=== PATIENT | male | born 1945 | race Caucasian/White ===

== ENCOUNTER 2017-10-06 15:10 | Inpatient (IN) | payer MEDICARE, OTHER ==
[~2017-10-06] VITALS: Ht 167.6 cm; Wt 69.4 kg
[2017-10-06 15:30] VITALS: BP 155/89
[2017-10-06] MEDS ORDERED: ACETAMINOPHEN 325 MG TABLET PO PRN ×2 (17:00)
[2017-10-06] MEDS ORDERED: TEMAZEPAM 15 MG CAPSULE PO PRN (17:00)
[2017-10-06] MEDS ORDERED: DOCUSATE SODIUM 283 MG/5 ML MINI-ENEMA PR PRN (17:00)
[2017-10-06] MEDS ORDERED: PNEUMOCOCCAL VACCINE POLYVALENT 0.5 ML VIAL [PPSV23] IM ONE (18:15)
[2017-10-06 19:06] LABS: APPEARANCE,URINE CLEAR (CLEAR); BILIRUBIN,URINE NEGATIVE (NEGATIVE); GLUCOSE, URINE (UA) NEGATIVE (NEGATIVE); KETONES,URINE NEGATIVE (NEGATIVE); LEUKOCYTE ESTERASE ,URINE NEGATIVE (NEGATIVE); NITRATE,URINE NEGATIVE (NEGATIVE); OCCULT BLOOD,URINE NEGATIVE (NEGATIVE); PROTEIN,URINE NEGATIVE (NEGATIVE)
[2017-10-06 19:20] LABS: BACTERIA,URINE None Seen /HPF (None Seen); RBC,URINE None Seen /HPF (0-2); WBC,URINE None Seen /HPF (0-5)
[2017-10-06 19:21] LABS: SQUAMOUS EPITHELIAL CELL,UR Rare /LPF (None Seen)
[2017-10-06] MEDS: HEPARIN SODIUM,PORCINE 5,000 UNITS/ML VIAL SQ SCH (20:32)
[2017-10-06] MEDS: ATORVASTATIN CALCIUM 40 MG TABLET PO SCH (20:32)
[2017-10-06] MEDS: SENNA 187 MG TABLET PO SCH (20:32)
[2017-10-06] MEDS: DOCUSATE SODIUM 100 MG CAPSULE PO SCH (20:32)
[2017-10-06 21:37] VITALS: BP 149/84
[2017-10-06 21:43] VITALS: BP 143/75
[2017-10-07 03:00] VITALS: BP 152/89
[2017-10-07 06:00] VITALS: BP 148/84
[2017-10-07 06:37] LABS: BASOPHILS % (AUTO) 0.8 % (0.0-2.0); EOSINOPHILS % (AUTO) 2.1 % (1.0-6.0); HEMATOCRIT 52.2 % (41-53); HEMOGLOBIN 18.3 g/dL (13.5-17.5); LYMPHOCYTES # (AUTO) 1.5 K/uL (1.0-4.8); LYMPHOCYTES % (AUTO) 17.4 % (22.0-44.0); MEAN CORPUSCULAR HEMOGLOBIN 34.7 pg (26.0-34.0); MEAN CORPUSCULAR HGB CONC 35.1 G/dL (31.0-37.0); MEAN CORPUSCULAR VOLUME 99 fL (80-100); NEUTROPHILS # (AUTO) 5.9 K/uL (1.8-7.7); NEUTROPHILS % (AUTO) 67.7 % (40.0-70.0); PLATELET COUNT (AUTO) 224 K/uL (150-450); RED BLOOD CELL COUNT(AUTO) 5.29 MIL/uL (4.50-5.90); RED CELL DISTRIBUTION WIDTH 13.6 % (11.5-14.5)
[2017-10-07 07:07] LABS: ALANINE AMINOTRANSFERASE 70 U/L (12-78); ALBUMIN 3.2 g/dL (3.4-5.0); ALKALINE PHOSPHATASE 153 U/L (46-116); ANION GAP 10 mmol/L (8-16); ASPARTATE AMINOTRANSFERASE 54 U/L (15-37); BILIRUBIN,TOTAL 1.1 mg/dL (0.1-1.0); CALCIUM, TOTAL 8.9 mg/dL (8.8-10.5); CARBON DIOXIDE 26 mmol/L (22-29); CHLORIDE 102 mmol/L (98-107); CREATININE 0.89 mg/dL (0.60-1.30); GLUCOSE,RANDOM 98 mg/dL (70-110); POTASSIUM 4.2 mmol/L (3.5-5.1); SODIUM SERUM 138 mmol/L (136-145); TOTAL PROTEIN, SERUM 7.9 g/dL (6.4-8.2); UREA NITROGEN, BLOOD 12 mg/dL (7-18)
[2017-10-07 07:08] LABS: GLOMERULAR FILTR. RATE CALC > 60 mL/min (>60)
[2017-10-07 07:27] VITALS: BP 150/88
[2017-10-07] MEDS: FOLIC ACID 1 MG TABLET PO SCH (08:20)
[2017-10-07] MEDS: THIAMINE HCL 100 MG TABLET PO SCH (08:20)
[2017-10-07] MEDS: FAMOTIDINE 20 MG TABLET PO SCH (08:20)
[2017-10-07] MEDS: ASPIRIN 81 MG CHEWABLE TABLET PO SCH (08:21)
[2017-10-07] MEDS: DOCUSATE SODIUM 100 MG CAPSULE PO SCH ×2 (08:21→21:05)
[2017-10-07] MEDS: LISINOPRIL 10 MG TABLET PO SCH (08:21)
[2017-10-07] MEDS: HEPARIN SODIUM,PORCINE 5,000 UNITS/ML VIAL SQ SCH ×2 (08:21→21:12)
[2017-10-07 12:00] VITALS: BP 140/67
[2017-10-07 16:01] VITALS: BP 140/63
[2017-10-07] MEDS: SENNA 187 MG TABLET PO SCH (21:05)
[2017-10-07] MEDS: ATORVASTATIN CALCIUM 40 MG TABLET PO SCH (21:05)
[2017-10-08 01:00] VITALS: BP 147/73
[2017-10-08 08:00] VITALS: BP 147/78
[2017-10-08] MEDS: FAMOTIDINE 20 MG TABLET PO SCH (08:48)
[2017-10-08] MEDS: HEPARIN SODIUM,PORCINE 5,000 UNITS/ML VIAL SQ SCH ×2 (08:48→21:46)
[2017-10-08] MEDS: LISINOPRIL 10 MG TABLET PO SCH (08:48)
[2017-10-08] MEDS: THIAMINE HCL 100 MG TABLET PO SCH (08:48)
[2017-10-08] MEDS: FOLIC ACID 1 MG TABLET PO SCH (08:49)
[2017-10-08] MEDS: ASPIRIN 81 MG CHEWABLE TABLET PO SCH (08:49)
[2017-10-08] MEDS: DOCUSATE SODIUM 100 MG CAPSULE PO SCH ×2 (08:49→21:45)
[2017-10-08 15:05] VITALS: BP 148/74
[2017-10-08] MEDS: ATORVASTATIN CALCIUM 40 MG TABLET PO SCH (21:46)
[2017-10-08] MEDS: SENNA 187 MG TABLET PO SCH (21:46)
[2017-10-09 04:00] VITALS: BP 145/80
[2017-10-09 08:04] VITALS: BP 160/87
[2017-10-09] MEDS: FAMOTIDINE 20 MG TABLET PO SCH (08:12)
[2017-10-09] MEDS: ASPIRIN 81 MG CHEWABLE TABLET PO SCH (08:12)
[2017-10-09] MEDS: DOCUSATE SODIUM 100 MG CAPSULE PO SCH ×2 (08:12→20:24)
[2017-10-09] MEDS: THIAMINE HCL 100 MG TABLET PO SCH (08:13)
[2017-10-09] MEDS: HEPARIN SODIUM,PORCINE 5,000 UNITS/ML VIAL SQ SCH ×2 (08:13→20:24)
[2017-10-09] MEDS: FOLIC ACID 1 MG TABLET PO SCH (08:13)
[2017-10-09] MEDS ORDERED: LISINOPRIL 10 MG TABLET PO SCH (09:00)
[2017-10-09 11:42] VITALS: BP 140/71
[2017-10-09 15:08] VITALS: BP_SYST 138; BP_SYST 155; BP_DIAS 68; BP_DIAS 69
[2017-10-09] MEDS: ATORVASTATIN CALCIUM 40 MG TABLET PO SCH (20:24)
[2017-10-09] MEDS: SENNA 187 MG TABLET PO SCH (20:24)
[2017-10-09] MEDS ORDERED: LISI-662 PO ×2 (23:21→23:26)
[2017-10-09] MEDS ORDERED: ASPI81TA39 PO (23:25)
[2017-10-09] MEDS ORDERED: ATOR40TA28 PO (23:25)
[2017-10-09] MEDS ORDERED: FAMO20 PO (23:25)
[2017-10-09] MEDS ORDERED: DSS100 PO (23:25)
[2017-10-09] MEDS ORDERED: SENN-175 PO (23:25)
[2017-10-09] MEDS ORDERED: FOLI1 PO (23:25)
[2017-10-09] MEDS ORDERED: THIA100T67 PO (23:25)
[2017-10-10 01:42] VITALS: BP 142/73
[2017-10-10 07:24] VITALS: BP 149/79
[2017-10-10] MEDS: THIAMINE HCL 100 MG TABLET PO SCH (08:01)
[2017-10-10] MEDS: HEPARIN SODIUM,PORCINE 5,000 UNITS/ML VIAL SQ SCH ×2 (08:01→20:18)
[2017-10-10] MEDS: FOLIC ACID 1 MG TABLET PO SCH (08:01)
[2017-10-10] MEDS: LISINOPRIL 20 MG TABLET PO SCH (08:01)
[2017-10-10] MEDS: FAMOTIDINE 20 MG TABLET PO SCH (08:01)
[2017-10-10] MEDS: ASPIRIN 81 MG CHEWABLE TABLET PO SCH (08:01)
[2017-10-10] MEDS: DOCUSATE SODIUM 100 MG CAPSULE PO SCH ×2 (08:01→20:18)
[2017-10-10] MEDS: NICOTINE 21 MG/24 HOUR PATCH TD SCH (13:27)
[2017-10-10 15:30] VITALS: BP 107/69
[2017-10-10] MEDS: SENNA 187 MG TABLET PO SCH (20:18)
[2017-10-10] MEDS: ATORVASTATIN CALCIUM 40 MG TABLET PO SCH (20:18)
[2017-10-10 23:40] VITALS: BP 145/70
[2017-10-11 07:16] VITALS: BP 160/83
[2017-10-11] MEDS: LISINOPRIL 20 MG TABLET PO SCH (08:00)
[2017-10-11] MEDS: FAMOTIDINE 20 MG TABLET PO SCH (08:00)
[2017-10-11] MEDS: FOLIC ACID 1 MG TABLET PO SCH (08:00)
[2017-10-11] MEDS: THIAMINE HCL 100 MG TABLET PO SCH (08:00)
[2017-10-11] MEDS: DOCUSATE SODIUM 100 MG CAPSULE PO SCH ×2 (08:00→20:38)
[2017-10-11] MEDS: ASPIRIN 81 MG CHEWABLE TABLET PO SCH (08:00)
[2017-10-11] MEDS: HYDROCHLOROTHIAZIDE 25 MG TABLET PO SCH (08:01)
[2017-10-11] MEDS: HEPARIN SODIUM,PORCINE 5,000 UNITS/ML VIAL SQ SCH ×2 (08:02→20:38)
[2017-10-11] MEDS: NICOTINE 21 MG/24 HOUR PATCH TD SCH (08:03)
[2017-10-11 09:15] VITALS: BP 139/71
[2017-10-11 15:33] VITALS: BP 140/68
[2017-10-11] MEDS: SENNA 187 MG TABLET PO SCH (20:37)
[2017-10-11] MEDS: ATORVASTATIN CALCIUM 40 MG TABLET PO SCH (20:38)
[2017-10-11 23:41] VITALS: BP 134/66
[2017-10-12 07:26] VITALS: BP 154/79
[2017-10-12] MEDS: DOCUSATE SODIUM 100 MG CAPSULE PO SCH ×2 (08:26→20:02)
[2017-10-12] MEDS: ASPIRIN 81 MG CHEWABLE TABLET PO SCH (08:26)
[2017-10-12] MEDS: LISINOPRIL 20 MG TABLET PO SCH (08:26)
[2017-10-12] MEDS: HYDROCHLOROTHIAZIDE 25 MG TABLET PO SCH (08:26)
[2017-10-12] MEDS: FAMOTIDINE 20 MG TABLET PO SCH (08:26)
[2017-10-12] MEDS: THIAMINE HCL 100 MG TABLET PO SCH (08:26)
[2017-10-12] MEDS: FOLIC ACID 1 MG TABLET PO SCH (08:26)
[2017-10-12] MEDS: HEPARIN SODIUM,PORCINE 5,000 UNITS/ML VIAL SQ SCH ×2 (08:26→20:02)
[2017-10-12] MEDS: NICOTINE 21 MG/24 HOUR PATCH TD SCH (08:28)
[2017-10-12 13:00] VITALS: BP 156/72
[2017-10-12 15:00] VITALS: BP 114/61
[2017-10-12] MEDS: ATORVASTATIN CALCIUM 40 MG TABLET PO SCH (20:02)
[2017-10-12] MEDS: SENNA 187 MG TABLET PO SCH (20:02)
[2017-10-13 00:26] VITALS: BP 148/85
[2017-10-13 07:30] VITALS: BP 128/59
[2017-10-13] MEDS: HEPARIN SODIUM,PORCINE 5,000 UNITS/ML VIAL SQ SCH ×2 (08:44→20:31)
[2017-10-13] MEDS: FAMOTIDINE 20 MG TABLET PO SCH (08:44)
[2017-10-13] MEDS: FOLIC ACID 1 MG TABLET PO SCH (08:45)
[2017-10-13] MEDS: HYDROCHLOROTHIAZIDE 25 MG TABLET PO SCH (08:45)
[2017-10-13] MEDS: DOCUSATE SODIUM 100 MG CAPSULE PO SCH ×2 (08:46→20:32)
[2017-10-13] MEDS: THIAMINE HCL 100 MG TABLET PO SCH (08:46)
[2017-10-13] MEDS: ASPIRIN 81 MG CHEWABLE TABLET PO SCH (08:46)
[2017-10-13] MEDS: LISINOPRIL 20 MG TABLET PO SCH (08:46)
[2017-10-13] MEDS: NICOTINE 21 MG/24 HOUR PATCH TD SCH (08:47)
[2017-10-13 16:01] VITALS: BP 127/76
[2017-10-13] MEDS: SENNA 187 MG TABLET PO SCH (20:31)
[2017-10-13] MEDS: ATORVASTATIN CALCIUM 40 MG TABLET PO SCH (20:31)
[2017-10-14 00:26] VITALS: BP 150/69
[2017-10-14 07:12] VITALS: BP 165/71
[2017-10-14] MEDS: HYDROCHLOROTHIAZIDE 25 MG TABLET PO SCH (08:13)
[2017-10-14] MEDS: NICOTINE 21 MG/24 HOUR PATCH TD SCH (08:13)
[2017-10-14] MEDS: HEPARIN SODIUM,PORCINE 5,000 UNITS/ML VIAL SQ SCH ×2 (08:13→21:13)
[2017-10-14] MEDS: LISINOPRIL 20 MG TABLET PO SCH (08:13)
[2017-10-14] MEDS: DOCUSATE SODIUM 100 MG CAPSULE PO SCH ×2 (08:14→21:13)
[2017-10-14] MEDS: FOLIC ACID 1 MG TABLET PO SCH (08:14)
[2017-10-14] MEDS: FAMOTIDINE 20 MG TABLET PO SCH (08:14)
[2017-10-14] MEDS: ASPIRIN 81 MG CHEWABLE TABLET PO SCH (08:15)
[2017-10-14 15:47] VITALS: BP 136/77
[2017-10-14] MEDS: SENNA 187 MG TABLET PO SCH (21:13)
[2017-10-14] MEDS: ATORVASTATIN CALCIUM 40 MG TABLET PO SCH (21:13)
[2017-10-15 02:30] VITALS: BP 152/75
[2017-10-15 07:30] VITALS: BP 141/66
[2017-10-15] MEDS: NICOTINE 21 MG/24 HOUR PATCH TD SCH (07:51)
[2017-10-15] MEDS: HEPARIN SODIUM,PORCINE 5,000 UNITS/ML VIAL SQ SCH ×2 (07:52→20:51)
[2017-10-15] MEDS: HYDROCHLOROTHIAZIDE 25 MG TABLET PO SCH (07:53)
[2017-10-15] MEDS: LISINOPRIL 20 MG TABLET PO SCH (07:53)
[2017-10-15] MEDS: FAMOTIDINE 20 MG TABLET PO SCH (07:53)
[2017-10-15] MEDS: FOLIC ACID 1 MG TABLET PO SCH (07:54)
[2017-10-15] MEDS: ASPIRIN 81 MG CHEWABLE TABLET PO SCH (07:54)
[2017-10-15] MEDS: DOCUSATE SODIUM 100 MG CAPSULE PO SCH ×2 (07:54→20:51)
[2017-10-15 15:16] VITALS: BP 147/75
[2017-10-15 20:47] VITALS: BP 128/60
[2017-10-15] MEDS: ATORVASTATIN CALCIUM 40 MG TABLET PO SCH (20:51)
[2017-10-15] MEDS: SENNA 187 MG TABLET PO SCH (20:51)
[2017-10-16 02:46] VITALS: BP 131/65
[2017-10-16 07:09] VITALS: BP 139/71
[2017-10-16] MEDS: ASPIRIN 81 MG CHEWABLE TABLET PO SCH (07:59)
[2017-10-16] MEDS: FAMOTIDINE 20 MG TABLET PO SCH (07:59)
[2017-10-16] MEDS: HYDROCHLOROTHIAZIDE 25 MG TABLET PO SCH (07:59)
[2017-10-16] MEDS: FOLIC ACID 1 MG TABLET PO SCH (07:59)
[2017-10-16] MEDS: DOCUSATE SODIUM 100 MG CAPSULE PO SCH ×2 (07:59→20:49)
[2017-10-16] MEDS: HEPARIN SODIUM,PORCINE 5,000 UNITS/ML VIAL SQ SCH ×2 (07:59→20:50)
[2017-10-16] MEDS: LISINOPRIL 20 MG TABLET PO SCH (07:59)
[2017-10-16] MEDS: NICOTINE 21 MG/24 HOUR PATCH TD SCH (08:02)
[2017-10-16 15:03] VITALS: BP 122/60
[2017-10-16] MEDS: SENNA 187 MG TABLET PO SCH (20:50)
[2017-10-16] MEDS: ATORVASTATIN CALCIUM 40 MG TABLET PO SCH (20:50)
[2017-10-17 02:06] VITALS: BP 133/66
[2017-10-17 06:44] LABS: ALANINE AMINOTRANSFERASE 82 U/L (12-78); ALBUMIN 3.1 g/dL (3.4-5.0); ALKALINE PHOSPHATASE 145 U/L (46-116); ANION GAP 8 mmol/L (8-16); ASPARTATE AMINOTRANSFERASE 39 U/L (15-37); BILIRUBIN,TOTAL 0.7 mg/dL (0.1-1.0); CALCIUM, TOTAL 8.9 mg/dL (8.8-10.5); CARBON DIOXIDE 27 mmol/L (22-29); CHLORIDE 100 mmol/L (98-107); CREATININE 1.01 mg/dL (0.60-1.30); GLUCOSE,RANDOM 108 mg/dL (70-110); POTASSIUM 4.1 mmol/L (3.5-5.1); SODIUM SERUM 135 mmol/L (136-145); TOTAL PROTEIN, SERUM 7.5 g/dL (6.4-8.2); UREA NITROGEN, BLOOD 20 mg/dL (7-18)
[2017-10-17 06:50] LABS: GLOMERULAR FILTR. RATE CALC > 60 mL/min (>60)
[2017-10-17 07:18] VITALS: BP 122/65
[2017-10-17] MEDS: NICOTINE 21 MG/24 HOUR PATCH TD SCH (09:03)
[2017-10-17] MEDS: FOLIC ACID 1 MG TABLET PO SCH (09:03)
[2017-10-17] MEDS: LISINOPRIL 20 MG TABLET PO SCH (09:03)
[2017-10-17] MEDS: DOCUSATE SODIUM 100 MG CAPSULE PO SCH ×2 (09:03→20:59)
[2017-10-17] MEDS: HEPARIN SODIUM,PORCINE 5,000 UNITS/ML VIAL SQ SCH ×2 (09:03→20:59)
[2017-10-17] MEDS: FAMOTIDINE 20 MG TABLET PO SCH (09:04)
[2017-10-17] MEDS: HYDROCHLOROTHIAZIDE 25 MG TABLET PO SCH (09:04)
[2017-10-17] MEDS: ASPIRIN 81 MG CHEWABLE TABLET PO SCH (09:04)
[2017-10-17 16:19] VITALS: BP 128/67
[2017-10-17] MEDS: ATORVASTATIN CALCIUM 40 MG TABLET PO SCH (20:59)
[2017-10-17] MEDS: SENNA 187 MG TABLET PO SCH (20:59)
[2017-10-18 04:00] VITALS: BP 135/76
[2017-10-18 07:30] VITALS: BP 130/65
[2017-10-18] MEDS: HYDROCHLOROTHIAZIDE 25 MG TABLET PO SCH (09:25)
[2017-10-18] MEDS: LISINOPRIL 20 MG TABLET PO SCH (09:25)
[2017-10-18] MEDS: FAMOTIDINE 20 MG TABLET PO SCH (09:25)
[2017-10-18] MEDS: ASPIRIN 81 MG CHEWABLE TABLET PO SCH (09:25)
[2017-10-18] MEDS: DOCUSATE SODIUM 100 MG CAPSULE PO SCH ×2 (09:25→21:20)
[2017-10-18] MEDS: FOLIC ACID 1 MG TABLET PO SCH (09:25)
[2017-10-18] MEDS: NICOTINE 21 MG/24 HOUR PATCH TD SCH (09:26)
[2017-10-18 15:23] VITALS: BP 123/59
[2017-10-18] MEDS: SENNA 187 MG TABLET PO SCH (21:20)
[2017-10-18] MEDS: ATORVASTATIN CALCIUM 40 MG TABLET PO SCH (21:20)
[2017-10-18] MEDS ORDERED: NICO-704 TD (23:16)
[2017-10-18] MEDS ORDERED: HYDR25TA PO (23:16)
[2017-10-19 02:15] VITALS: BP 140/68
[2017-10-19 07:41] VITALS: BP 134/64
[2017-10-19] MEDS: NICOTINE 21 MG/24 HOUR PATCH TD SCH (08:27)
[2017-10-19] MEDS: HYDROCHLOROTHIAZIDE 25 MG TABLET PO SCH (08:27)
[2017-10-19] MEDS: DOCUSATE SODIUM 100 MG CAPSULE PO SCH (08:27)
[2017-10-19] MEDS: ASPIRIN 81 MG CHEWABLE TABLET PO SCH (08:27)
[2017-10-19] MEDS: LISINOPRIL 20 MG TABLET PO SCH (08:27)
[2017-10-19] MEDS: FAMOTIDINE 20 MG TABLET PO SCH (08:27)
[2017-10-19] MEDS: FOLIC ACID 1 MG TABLET PO SCH (08:27)
[2017-10-19] MEDS ORDERED: NICO-703 TD (10:05)
== END 2017-10-19 12:15 | disposition home or self-care (01) | DRG 64 ==
LOC: 2WR 15:10
PROVIDERS: ADMIT Physical Medicine & Rehabilitation; ATTEND Physical Medicine & Rehabilitation
DX: I63.9 Cerebral infarction, unspecified (principal); E43 Unspecified severe protein-calorie malnutrition; I69.354 Hemiplegia and hemiparesis following cerebral infarction affecting left non-dominant side; I69.398 Other sequelae of cerebral infarction; I69.322 Dysarthria following cerebral infarction; I69.318 Other symptoms and signs involving cognitive functions following cerebral infarction; F17.210 Nicotine dependence, cigarettes, uncomplicated; E78.00 Pure hypercholesterolemia, unspecified; I10 Essential (primary) hypertension; G47.00 Insomnia, unspecified; Z68.24 Body mass index [BMI] 24.0-24.9, adult; F10.10 Alcohol abuse, uncomplicated
CPT/HCPCS: 87081; 92507; 92508; 92523; 97110; 97112; 97116; 97150; 97162; 97166; 97530; 97535; 99366; J1644